=== PATIENT | male | born 1965 | race Two or more races ===

== ENCOUNTER 2022-09-23 10:53 | Emergency (ER) | payer BC, MEDICAID ==
[~2022-09-23] VITALS: Ht 172.7 cm; Wt 86.0 kg
[2022-09-23 12:14] VITALS: BP 152/79
[2022-09-23] MEDS ORDERED: predniSONE 20 mg tablet PO ONE (12:50)
[2022-09-23] MEDS ORDERED: diphenhydrAMINE 25mg capsule PO ONE (12:50)
--- NOTE | 2022-09-23 12:56 | NUR ---
ADVICE CLERK USED #[id number]
[2022-09-23 13:09] LABS: BASOPHILS % (AUTO) 0.4 % (0-1); EOSINOPHILS # (AUTO) 0.1 X10'3 (0-0.9); EOSINOPHILS % (AUTO) 1.3 % (0-6); HEMATOCRIT 45.4 % (42.0-52.0); HEMOGLOBIN 15.2 g/dl (14.0-17.9); LYMPHOCYTES # (AUTO) 2.2 X10'3 (1.1-4.8); LYMPHOCYTES % (AUTO) 37.6 % (21-51); MEAN CORPUSCULAR HEMOGLOBIN 29.7 PG (27.0-31.0); MEAN CORPUSCULAR HGB CONC 33.4 g/dL (33.0-36.5); MEAN CORPUSCULAR VOLUME 88.9 FL (78-98); MEAN PLATELET VOLUME 6.6 FL (7.4-10.4); MONOCYTES # (AUTO) 0.4 X10'3 (0-0.9); MONOCYTES % (AUTO) 6.9 % (2-12); NEUTROPHILS # (AUTO) 3.2 X10'3 (1.8-7.7); NEUTROPHILS % (AUTO) 53.8 % (42-75); PLATELET COUNT 306 X10'3 (140-440); RED BLOOD COUNT 5.11 X10'6 (4.70-6.10); RED CELL DISTRIBUTION WIDTH 13.3 % (11.5-14.5)
[2022-09-23 13:25] LABS: ALANINE AMINOTRANSFERASE 25 U/L (12-78); ALBUMIN/GLOBULIN RATIO 1.1 (1.1-1.5); ALKALINE PHOSPHATASE 88 IU/L (46-116); ANION GAP 9 (8-16); ASPARTATE AMINO TRANSFERASE 24 U/L (10-37); BILIRUBIN,TOTAL 0.5 MG/DL (0.1-1.0); BLOOD UREA NITROGEN 12 MG/DL (7-18); BUN/CREATININE RATIO 14.3 (5.4-32.0); CALCIUM 9.2 MG/DL (8.5-10.1); CHLORIDE 102 MMOL/L (99-107); CREATININE 0.84 MG/DL (0.60-1.10); GLUCOSE 95 MG/DL (70-104); POTASSIUM 4.3 MMOL/L (3.5-5.1); SODIUM 139 MMOL/L (135-145); TOTAL CARBON DIOXIDE 28.3 MMOL/L (24-32); TOTAL PROTEIN 7.8 G/DL (6.4-8.2); eGFR > 90 ML/MIN
[2022-09-23] MEDS ORDERED: DIPH25CA83 PO (13:37)
[2022-09-23] MEDS ORDERED: PRED20TA PO (13:37)
--- NOTE | 2022-09-23 13:55 | NUR ---
ALL DC INSTRUCTIONS DONE OVER [employer].
== END 2022-09-23 14:15 | disposition home or self-care (01) ==
LOC: ER 10:54
DX: L29.9 Pruritus, unspecified (principal); R21 Rash and other nonspecific skin eruption; Z79.899 Other long term (current) drug therapy
CPT/HCPCS: 36415; 80053; 85025; 99284; J7512; Q0163

== ENCOUNTER 2022-12-28 11:11 | Emergency (ER) | payer BC, MEDICAID ==
[~2022-12-28] VITALS: Ht 165.1 cm; Wt 81.0 kg
[~2022-12-28 11:11] MED LIST: DIPH25CA83 PO
[2022-12-28 11:53] VITALS: BP 122/80
[2022-12-28] MEDS ORDERED: PRED20TA PO (13:12)
[2022-12-28] MEDS ORDERED: CETI1TAB PO (13:12)
[2022-12-28] MEDS ORDERED: CEPH250T PO (13:12)
== END 2022-12-28 13:31 | disposition home or self-care (01) ==
LOC: ER 11:11
DX: L29.9 Pruritus, unspecified (principal); Z79.899 Other long term (current) drug therapy
CPT/HCPCS: 99283